=== PATIENT | male | born 1965 | race Caucasian/White ===

== ENCOUNTER → 2017-03-08 | Outpatient (CLI) | payer MEDICARE | LOC: EXRD 11:18 | DX: R07.9 Chest pain, unspecified (principal); Z95.0 Presence of cardiac pacemaker | CPT/HCPCS: 71020 ==

== ENCOUNTER 2020-12-28 11:28 | Inpatient (IN) | payer OTHER ==
[~2020-12-28] VITALS: Ht 182.9 cm; Wt 95.3 kg
[~2020-12-28 11:28] MED LIST: ELIQUIS5 MG PO; LEVAQUIN750 MG PO; METOPROLOL SUCC50 MG PO; TYLENOL WITH C1 EACH PO
[2020-12-28 12:50] LABS: HEMOGLOBIN 15.6 gm/dl (14.0-17.5); RED BLOOD COUNT 4.91 M/UL (4.20-5.50); WHITE BLOOD COUNT 21.5 K/UL (4.5-11.0)
[2020-12-28 13:09] LABS: BUN/CREATININE RATIO 18 (0-10)
[2020-12-28] MEDS ORDERED: ASPIRIN EC81 MG PO (15:33)
[2020-12-29 12:18] LABS: HEMOGLOBIN 14.2 gm/dl (14.0-17.5)
== END 2020-12-29 15:00 | disposition other institution (70) | DRG 175 ==
LOC: ER1 11:28 → CDU 15:11 → PROG CARE 19:22
PROVIDERS: Physician Assistant; ADMIT Family Medicine
DX: I26.99 Other pulmonary embolism without acute cor pulmonale (principal); J18.9 Pneumonia, unspecified organism; I82.412 Acute embolism and thrombosis of left femoral vein; I82.812 Embolism and thrombosis of superficial veins of left lower extremity; I51.7 Cardiomegaly; Z20.822 Contact with and (suspected) exposure to COVID-19; F17.200 Nicotine dependence, unspecified, uncomplicated; E11.9 Type 2 diabetes mellitus without complications; N40.0 Benign prostatic hyperplasia without lower urinary tract symptoms; I10 Essential (primary) hypertension; F41.9 Anxiety disorder, unspecified; I51.9 Heart disease, unspecified; Z82.49 Family history of ischemic heart disease and other diseases of the circulatory system; Z90.49 Acquired absence of other specified parts of digestive tract; Z95.0 Presence of cardiac pacemaker
CPT/HCPCS: ECHO; 0240U; 36415; 80053; 82550; 82553; 82962; 83036; 83874; 83880; 84484; 85014; 85018; 85025; 85610; 85730; 93005; 93306; 93926; 93970; 96365; 96366; 96368; 96372; 96375; 99285; J0456; J0696; J1644; J1885; J7030; Q9967

== ENCOUNTER 2021-04-25 09:19 | Emergency (ER) | payer OTHER ==
[~2021-04-25] VITALS: Ht 182.9 cm; Wt 98.9 kg
[~2021-04-25 09:19] MED LIST changes: +ASPIRIN EC81 MG PO
[2021-04-25 09:56] LABS: HEMOGLOBIN 17.1 gm/dl (14.0-17.5); RED BLOOD COUNT 5.22 M/UL (4.20-5.50)
[2021-04-25 12:03] LABS: BUN/CREATININE RATIO 16 (0-10)
== END 2021-04-25 13:45 | disposition home or self-care (01) ==
LOC: ER1 09:19
PROVIDERS: Emergency Medicine
DX: Z23 Encounter for immunization (principal); U07.1 COVID-19; I25.10 Atherosclerotic heart disease of native coronary artery without angina pectoris; E78.5 Hyperlipidemia, unspecified; I12.9 Hypertensive chronic kidney disease with stage 1 through stage 4 chronic kidney disease, or unspecified chronic kidney disease; N18.9 Chronic kidney disease, unspecified; E11.22 Type 2 diabetes mellitus with diabetic chronic kidney disease; Z86.711 Personal history of pulmonary embolism; Z79.01 Long term (current) use of anticoagulants
CPT/HCPCS: 71045; 80053; 82550; 82553; 83690; 83735; 83874; 84100; 84484; 85025; 85379; 85610; 85730; 93005; 99285; M0243; U0002

== ENCOUNTER → 2022-06-07 | Outpatient (CLI) | payer OTHER | LOC: HEART 5 14:52 | DX: I25.10 Atherosclerotic heart disease of native coronary artery without angina pectoris (principal); I10 Essential (primary) hypertension; I25.5 Ischemic cardiomyopathy; I07.1 Rheumatic tricuspid insufficiency | CPT/HCPCS: 93306 ==